=== PATIENT | female | born 1955 | race Caucasian/White ===

== ENCOUNTER 2019-02-04 12:30 | Emergency (ER) | payer OTHER ==
[~2019-02-04] VITALS: Ht 165.1 cm; Wt 81.6 kg
[~2019-02-04 12:30] MED LIST: HYZAAR 100/25 T1 TAB PO; INDERAL1 MG/M1 IV; SYNTHROID50 MCG PO
== END 2019-02-04 14:32 | disposition home or self-care (01) ==
LOC: ER 12:30
DX: E04.1 Nontoxic single thyroid nodule (principal)

== ENCOUNTER 2020-07-25 15:48 | Inpatient (IN) | payer OTHER ==
[~2020-07-25] VITALS: Ht 162.6 cm; Wt 78.0 kg
[2020-07-25] MEDS ORDERED: COZAAR25 MG PO (16:07)
[2020-07-25] MEDS ORDERED: ELIQUIS5 MG PO (16:08)
[2020-07-25] MEDS ORDERED: PROTONIX40 MG PO (16:08)
[2020-07-25] MEDS ORDERED: TOPROL XL100 M1 PO (16:08)
--- NOTE | 2020-07-25 16:09 | NUR ---
PACIENTE ALERTA Y ORIENTADA EN JEANNE MALDONADO ESFERAS, CON HX DE HBP, HIPOTIROIDISMO Y ARRITMIA CARDIACA, LLEGA A TRIAGE REFIRIENDO PALPITACIONES DESDE HACE VARIOS HILARIO, PACIENTE CORIE ELIQUIS Y TOPROL. EKG PRESENTA FIBRILACION ATRIAL, NIEGA DOLOR DE PECHO.
--- NOTE | 2020-07-25 21:09 | NUR ---
SE CONECTA PTE A MONITOR CARDIACO, HUGO ORDEN MEDICA. SE COMIENZA DRIP DE MEDICAMENTO CARDIZEM 100MG/100ML BAJANDO A 5ML/HR VIA IVPUMP, HUGO ORDEN MEDICA. PTE CONSULTADO CON MEDICINA INTERNA Y CARDIOLOGIA PARA CONTINUIDAD DE TRATAMIENTO. SE MANTIENE PTE BAJO OBSERVACION POR CAMBIOS EN GREER CONDICION
--- NOTE | 2020-07-26 00:20 | NUR ---
PTE ALERTA Y ORIENTADA X 3 ESFERAS EN BRENDEN CON BARANDAS ELEVADAS,CONECTADA A MONITOR CARDIACO Y OXIMETRIA,NO PRESENTA DIFICULTAD RESP NI REFIERE DOLOR DE PECHO AL MOMENTO.PTE CON MONITOR FRENTE A ESTACION DE ENFERMERIA YA QUE AREAS DE INTENSIVO SE ENCUENTRAN LLENAS.PTE CON AREA DE VENOPUNCION PATENTE Y VERA DE EDEMA CON FLUIDOS DE MANTENIMIENTO BAJANDO SIN DIFICULTAD.DRIP DE CARDIZEM 100MG/100 ML @ 5ML/HR.PENDIENTE A EVALUACION DE DR GARRETT Y DR REYES.SE MAMIE BAJO OBSERVACION POR CAMBIOS.
--- NOTE | 2020-07-26 03:01 | NUR ---
SE ASISTE PTE EN USO DE PRASHANT.
--- NOTE | 2020-07-26 06:40 | NUR ---
SE UBICA PTE EN AREA DE CPU Y SE ENTREGA A MS COLEY.
--- NOTE | 2020-07-26 08:02 | NUR ---
SE RECIBE PACIENTE ALERTA Y ORIENTADA EN LAS MALDONADO ESFERAS. SE OBSERVA PACIENTE CON VENOPUCION EN BRAZO IZQUIRDO VERA DE EDEMA. PACINTE CONECTADA A MONIOR CARDIACO Y OXIMETRIA DE PULSO. PACIENTE AL MOMENTO CON CARDIZEM 100MG/100ML AT 3ML/HR Y 0.9 NSS AT 120ML/HR. PACIENTE PENDIENTE A EVALUACION DE DR. REYES Y DR GARRETT. SE MANTIENE PACIENTE BAJO OBSERVACION CON BARANDAS ELEVADAS Y SE OFRCEN RONDAS PREVENTIVAS.
--- NOTE | 2020-07-26 10:07 | NUR ---
SE PFRECE SAM EN CAMA A PACIENTE LA CUAL REHUSA Y REFIERE QUE SE BANARE EN LA TRADE CUANDO GREER FAMILIAR TRAIGA JEANNE PERTENENCIAS. SE ORIENTA A PACIENTE ACECA DE LA IMPORATNCIA DEL SAM.
== END 2020-07-29 18:34 | disposition home or self-care (01) | DRG 310 ==
LOC: ER 15:48 → EDBD 16:37 → ER 16:37 → MEDI 07-26 10:40 → SEC-K 07-26 10:40 → MEDI 07-26 12:01
PROVIDERS: ADMIT Internal Medicine; ATTEND Internal Medicine
PROC: 4A12X4Z Monitoring of Cardiac Electrical Activity, External Approach (ICD-10-PCS; principal; 2020-07-26)
PROC: B24BYZZ Ultrasonography of Heart with Aorta using Other Contrast (ICD-10-PCS; 2020-07-26)
DX: I48.20 Chronic atrial fibrillation, unspecified (principal); I10 Essential (primary) hypertension; E03.8 Other specified hypothyroidism